=== PATIENT | female | born 1975 | race Caucasian/White ===

== ENCOUNTER 2020-12-07 18:30 | Emergency (ER) | payer OTHER ==
[~2020-12-07] VITALS: Ht 152.4 cm; Wt 72.6 kg
[2020-12-07 18:42] VITALS: Ht 152.4 cm; Wt 72.6 kg
[2020-12-07] MEDS ORDERED: AUGMENTIN 875-1 EACH PO (19:15)
[2020-12-07 19:38] VITALS: BP 136/90
== END 2020-12-07 19:38 ==
LOC: ED 18:30
DX: Z02.89 Encounter for other administrative examinations (principal)